=== PATIENT | male | born 1965 | race Caucasian/White ===

== ENCOUNTER 2020-08-30 19:13 | Emergency (ER) | payer OTHER ==
[~2020-08-30] VITALS: Ht 172.7 cm; Wt 105.0 kg
[2020-08-30 20:45] VITALS: BP 145/104
== END 2020-08-30 21:05 ==
LOC: ER 19:41
DX: Z02.89 Encounter for other administrative examinations (principal); R00.0 Tachycardia, unspecified; I11.9 Hypertensive heart disease without heart failure; Z95.5 Presence of coronary angioplasty implant and graft
CPT/HCPCS: 99283